=== PATIENT | male | born 1970 | race Caucasian/White ===

== ENCOUNTER 2020-08-11 13:57 | Inpatient (IN) | payer BC, OTHER ==
[~2020-08-11] VITALS: Ht 182.9 cm; Wt 99.5 kg
[2020-08-11 14:32] LABS: BASOPHILS % (AUTO) 1 % (0-1); EOSINOPHILS % (AUTO) 2 % (1-7); LYMPHOCYTES % (AUTO) 22 % (22-44); MEAN CORPUSCULAR HEMOGLOBIN 32.4 pg (27.5-34.5); MEAN CORPUSCULAR HGB CONC 34.8 g/dL (33.2-36.2); MONOCYTES % (AUTO) 8 % (2-9); NEUTROPHILS % (AUTO) 67 % (42-75); PLATELET COUNT 281 x10^3/uL (130-400); RED BLOOD COUNT 5.13 x10^6/uL (4.38-5.82); RED CELL DISTRIBUTION WIDTH 12.8 % (9.4-14.8)
[2020-08-11 14:42] LABS: ALANINE AMINOTRANSFERASE 34 U/L (12-78); ALBUMIN 3.8 g/dL (3.4-5.0); ANION GAP 6 mmol/L (5-15); CALCIUM 9.4 mg/dL (8.5-10.1); CHLORIDE 105 mmol/L (98-107); CREATININE 0.96 mg/dL (0.7-1.3)
[2020-08-11 14:44] LABS: ALKALINE PHOSPHATASE 136 U/L (45-117); BILIRUBIN,TOTAL 0.4 mg/dL (0.2-1.0); TOTAL PROTEIN 7.8 g/dL (6.4-8.2)
[2020-08-11 14:54] LABS: MD NO
--- NOTE | 2020-08-11 15:20 | NUR ---
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
--- NOTE | 2020-08-11 15:42 | NUR ---
PIT ORDERS PLACED IN TRIAGE. CONTINUE TO AWAIT XR, ALL OTHER RESULTS BACK. FAMILY AT BS.
--- NOTE | 2020-08-11 16:39 | NUR ---
ERP IN FOR RECHECK. ADD ON ORDERS FOR CTA. OUTSIDE PLANT SUPERVISOR IN TO START IV.
--- NOTE | 2020-08-11 17:00 | NUR ---
PT PLACED ON HEART MONITOR, VS RECHECKED/UPDATED IN COMPUTER.
[2020-08-11] MEDS ORDERED: BUTALB/APAP/CAFFEINE 50MG/325MG/40MG PO PRN ×2 (18:00)
[2020-08-11] MEDS ORDERED: LABETALOL 5MG/ML, 20ML IVPush PRN (18:00)
[2020-08-11] MEDS ORDERED: ONDANSETRON 2MG/ML, 2ML IVPush PRN (18:00)
[2020-08-11] MEDS ORDERED: OMNIPAQUE 350 MG/ML, 150 ML BOTTLE ONE (18:00)
[2020-08-11] MEDS ORDERED: ENALAPRILAT 1.25 MG/ML, 2ML IVPush PRN (18:00)
[2020-08-11] MEDS ORDERED: HEPARIN 5,000 UNITS/ML, 1ML IV ONE (18:00)
[2020-08-11] MEDS ORDERED: ONDANSETRON ODT 4 MG PO PRN (18:00)
[2020-08-11] MEDS ORDERED: BACLOFEN 10 MG TABLET PO PRN (18:00)
[2020-08-11] MEDS ORDERED: GUAIFENESIN/DM 200-20MG, 10ML UDC PO PRN (18:00)
--- NOTE | 2020-08-11 18:06 | NUR ---
ATTEMPT TO CALL REPORT, RN UNAVAILABLE, WILL CALL BACK.
--- NOTE | 2020-08-11 18:18 | NUR ---
REPORT TO CECELIA RN, PT READY FOR TRANSPORT TO [facility]. READS ON ONE CTA NOT RESULTED AT THIS TIME. PLAN DISCUSSED WITH ALCIDES AND CECELIA (RECEIVING RN) TO HOLD ON HEPARIN UNTIL CTA READS BACK AND VERIFICATION WITH [facility] TO PROCEED.
[2020-08-11] MEDS ORDERED: SODIUM CHLORIDE FLUSH 10ML SYR IVF PRN (18:30)
[2020-08-11] MEDS: MELATONIN 5 MG TABLET PO SCH (21:00)
[2020-08-11] MEDS: HEPARIN 25,000 UNITS/250ML PMX 250 ML IV PRN (21:41)
[2020-08-11] MEDS: OXYcodone IR 5MG TABLET PO PRN ×2 (21:44→22:06)
[2020-08-11] MEDS ORDERED: CETI-222 PO (22:11)
[2020-08-11] MEDS ORDERED: ATOR80TA PO (22:11)
[2020-08-11] MEDS: D5%-0.45% NACL 1,000 ML IV SCH (23:06)
[2020-08-11 23:12] VITALS: BP 144/89
[2020-08-11] MEDS: HYDROmorphone 2 MG/ML, 1ML IVPush PRN (23:19)
[2020-08-12] MEDS: HYDROmorphone 2 MG/ML, 1ML IVPush PRN ×5 (00:17→07:38)
[2020-08-12 01:29] VITALS: BP 121/76
[2020-08-12] MEDS: OXYcodone IR 5MG TABLET PO PRN (02:20)
[2020-08-12 04:30] LABS: BASOPHILS % (AUTO) 1 % (0-1); EOSINOPHILS % (AUTO) 2 % (1-7); LYMPHOCYTES % (AUTO) 32 % (22-44); MEAN CORPUSCULAR HEMOGLOBIN 32.7 pg (27.5-34.5); MEAN CORPUSCULAR HGB CONC 35.1 g/dL (33.2-36.2); MEAN PLATELET VOLUME 9.1 fL (7.4-10.4); MONOCYTES % (AUTO) 11 % (2-9); NEUTROPHILS % (AUTO) 55 % (42-75); PLATELET COUNT 243 x10^3/uL (130-400); RED BLOOD COUNT 4.53 x10^6/uL (4.38-5.82); RED CELL DISTRIBUTION WIDTH 12.7 % (9.4-14.8)
[2020-08-12 04:32] LABS: MD NO
[2020-08-12 04:37] LABS: ANION GAP 6 mmol/L (5-15); CALCIUM 8.8 mg/dL (8.5-10.1); CHLORIDE 107 mmol/L (98-107); CREATININE 0.81 mg/dL (0.7-1.3)
[2020-08-12] MEDS: HEPARIN 5,000 UNITS/ML, 1ML IV PRN (04:57)
[2020-08-12] MEDS: NICOTINE 21 MG/24 HR PATCH.TD24 TD SCH (07:31)
[2020-08-12] MEDS: SENNA/DOCUSATE TABLET PO SCH (07:31)
[2020-08-12 07:54] VITALS: BP 118/78
[2020-08-12] MEDS ORDERED: ATORVASTATIN 80 MG TABLET PO PRN (08:00)
[2020-08-12] MEDS: ASPIRIN 81 MG TABLET EC PO SCH (10:26)
[2020-08-12] MEDS ORDERED: CHLORHEXIDINE 15 ML UDC ONE (11:10)
[2020-08-12] MEDS ORDERED: CHLORHEXIDINE 15 ML UDC PO ONE (11:30)
[2020-08-12] MEDS: INSULIN LISPRO 100 UNITS/ML, PEN SQ-INSULIN SCH ×2 (11:34→16:00)
[2020-08-12 12:05] VITALS: BP 127/83
[2020-08-12] MEDS: D5%-0.45% NACL 1,000 ML IV SCH (12:54)
[2020-08-12] MEDS ORDERED: THROMBIN 20,000 UNIT VIAL TP ONE (13:22)
[2020-08-12] MEDS ORDERED: BUPIVACAINE/PF 0.5% ONE (13:22)
[2020-08-12] MEDS ORDERED: HEPARIN 1,000 UNITS/ML, 10ML ONE ×2 (13:22→16:53)
[2020-08-12] MEDS ORDERED: PROTAMINE SULFATE 10 MG/ML, 25ML ONE (13:23)
[2020-08-12] MEDS ORDERED: EPINEPHRINE 1 MG/ML, 1ML ONE (13:23)
[2020-08-12] MEDS ORDERED: VISIPAQUE 320MG/ML, 50ML BOTTLE ONE (14:08)
[2020-08-12] MEDS ORDERED: VISIPAQUE 270 MG/ML, 50ML BOTTLE ONE (14:08)
[2020-08-12] MEDS ORDERED: MIDAZOLAM 1 MG/ML, 2ML ONE (14:48)
[2020-08-12] MEDS ORDERED: FENTANYL PF 250 MCG/5ML ONE (14:48)
[2020-08-12] MEDS ORDERED: PHENYLEPHRINE 10 MG/ML ONE (15:08)
[2020-08-12] MEDS ORDERED: DEXAMETHASONE 4 MG/ML, 1ML ONE (15:08)
[2020-08-12] MEDS ORDERED: HEPARIN 1,000 UNITS/ML, 1ML IV ONE (15:48)
[2020-08-12] MEDS ORDERED: VISIPAQUE 270 MG/ML, 50ML BOTTLE IV ONE (16:00)
[2020-08-12] MEDS ORDERED: ALBUTEROL SULFATE 2.5 MG/3 ML NPPB PRN (17:00)
[2020-08-12] MEDS ORDERED: HYDROmorphone 1 MG/ML, 1ML INJ IVPush PRN (17:00)
[2020-08-12] MEDS ORDERED: PROMETHAZINE 25 MG/ML, 1ML IVPush PRN (17:00)
[2020-08-12] MEDS ORDERED: LABETALOL 5MG/ML, 20ML IV PRN (17:00)
[2020-08-12] MEDS ORDERED: hydrALAzine 20 MG/ML, 1ML IV PRN (17:00)
[2020-08-12] MEDS ORDERED: ACETAMINOPHEN 325 MG TABLET PO PRN (17:00)
[2020-08-12] MEDS ORDERED: MEPERIDINE/PF 25MG/0.5ML IVPush PRN (17:00)
[2020-08-12] MEDS ORDERED: LORazepam 2 MG/ML, 1ML IVPush PRN (17:00)
[2020-08-12] MEDS ORDERED: OXYcodone 5 MG/5 ML ORAL.SOL UDC PO PRN (17:00)
[2020-08-12] MEDS ORDERED: ONDANSETRON 2MG/ML, 2ML ONE (19:00)
[2020-08-12] MEDS ORDERED: PROPOFOL 10 MG/ML, 20ML ONE (19:00)
[2020-08-12] MEDS ORDERED: ROCURONIUM 10MG/ML,5ML ONE (19:00)
[2020-08-12] MEDS ORDERED: NEOSTIGMINE 1 MG/ML, 10ML ONE (19:00)
[2020-08-12] MEDS ORDERED: GLYCOPYRROLATE 0.2MG/1ML, 5ML ONE (19:00)
[2020-08-12] MEDS ORDERED: FENTANYL PF 100 MCG/2ML ONE ×2 (19:00→19:45)
[2020-08-12] MEDS ORDERED: CEFAZOLIN 1,000 MG ONE (19:00)
[2020-08-12] MEDS ORDERED: OXYcodone 5 MG/5 ML ORAL.SOL UDC ONE (19:45)
[2020-08-12] MEDS: FENTANYL PF 100 MCG/2ML IV PRN ×2 (19:50→20:01)
[2020-08-12] MEDS ORDERED: HYDROmorphone 1 MG/ML, 1ML INJ ONE (20:17)
[2020-08-12] MEDS: MELATONIN 5 MG TABLET PO SCH (21:00)
[2020-08-12 21:18] VITALS: BP 134/82
[2020-08-12] MEDS ORDERED: LIDOCAINE JELLY 2%, 30GM TP ONE (22:00)
[2020-08-13] MEDS: OXYcodone IR 5MG TABLET PO PRN ×5 (00:15→21:35)
[2020-08-13] MEDS: INSULIN LISPRO 100 UNITS/ML, PEN SQ-INSULIN SCH ×5 (00:19→21:29)
[2020-08-13 00:22] VITALS: BP 148/91
[2020-08-13 01:35] LABS: BASOPHILS % (AUTO) 1 % (0-1); EOSINOPHILS % (AUTO) 0 % (1-7); LYMPHOCYTES % (AUTO) 9 % (22-44); MEAN CORPUSCULAR HGB CONC 34.3 g/dL (33.2-36.2); MEAN PLATELET VOLUME 8.6 fL (7.4-10.4); MONOCYTES % (AUTO) 7 % (2-9); NEUTROPHILS % (AUTO) 83 % (42-75); PLATELET COUNT 262 x10^3/uL (130-400); RED BLOOD COUNT 4.49 x10^6/uL (4.38-5.82); RED CELL DISTRIBUTION WIDTH 12.7 % (9.4-14.8)
[2020-08-13 01:36] LABS: MD NO
[2020-08-13 01:45] LABS: ALBUMIN 3.2 g/dL (3.4-5.0); ANION GAP 7 mmol/L (5-15); CALCIUM 8.7 mg/dL (8.5-10.1); CHLORIDE 107 mmol/L (98-107)
[2020-08-13] MEDS: HYDROmorphone 2 MG/ML, 1ML IVPush PRN ×5 (01:56→23:13)
[2020-08-13] MEDS ORDERED: HEPARIN 5,000 UNITS/ML, 1ML IV ONE (03:00)
[2020-08-13] MEDS: HEPARIN 25,000 UNITS/250ML PMX 250 ML IV PRN (03:10)
[2020-08-13 05:00] VITALS: BP 123/81
[2020-08-13] MEDS: ASPIRIN 81 MG TABLET EC PO SCH (06:58)
[2020-08-13] MEDS: NICOTINE 21 MG/24 HR PATCH.TD24 TD SCH (07:58)
[2020-08-13] MEDS: SENNA/DOCUSATE TABLET PO SCH (07:58)
[2020-08-13 08:39] VITALS: BP 119/77
[2020-08-13] MEDS: D5%-0.45% NACL 1,000 ML IV SCH (09:37)
[2020-08-13] MEDS: HEPARIN 5,000 UNITS/ML, 1ML IV PRN ×2 (09:52→16:44)
[2020-08-13 12:51] VITALS: BP 112/69
[2020-08-13 18:48] VITALS: BP 123/73
[2020-08-13] MEDS: MELATONIN 5 MG TABLET PO SCH (21:00)
[2020-08-14] MEDS: HEPARIN 5,000 UNITS/ML, 1ML IV PRN ×4 (00:50→21:36)
[2020-08-14] MEDS: HEPARIN 25,000 UNITS/250ML PMX 250 ML IV PRN ×2 (00:52→17:51)
[2020-08-14 01:27] VITALS: BP 134/76
[2020-08-14] MEDS: OXYcodone IR 5MG TABLET PO PRN ×5 (02:00→20:13)
[2020-08-14] MEDS: HYDROmorphone 2 MG/ML, 1ML IVPush PRN ×7 (02:45→21:34)
[2020-08-14] MEDS: ASPIRIN 81 MG TABLET EC PO SCH (05:45)
[2020-08-14] MEDS: NICOTINE 21 MG/24 HR PATCH.TD24 TD SCH (07:38)
[2020-08-14] MEDS: SENNA/DOCUSATE TABLET PO SCH ×2 (07:40→21:40)
[2020-08-14] MEDS: INSULIN LISPRO 100 UNITS/ML, PEN SQ-INSULIN SCH ×4 (07:48→21:41)
[2020-08-14 07:55] VITALS: BP 130/80
[2020-08-14 12:57] VITALS: BP 130/80
[2020-08-14] MEDS ORDERED: HYDROmorphone 1 MG/ML, 1ML INJ IV ONE (13:30)
[2020-08-14] MEDS ORDERED: HYDROmorphone 1 MG/ML, 1ML INJ IM ONE (13:30)
[2020-08-14 19:15] VITALS: BP 134/81
[2020-08-14] MEDS ORDERED: DIPHENHYDRAMINE 25 MG CAPSULE PO PRN (20:00)
[2020-08-14] MEDS ORDERED: BISACODYL 10 MG SUPP PR PRN (21:00)
[2020-08-14] MEDS: MELATONIN 5 MG TABLET PO SCH (21:00)
[2020-08-14] MEDS: DIPHENHYDRAMINE/ZINC CRM 2%, 30GM TP PRN (21:03)
[2020-08-15 00:24] VITALS: BP 129/86
[2020-08-15] MEDS: OXYcodone IR 5MG TABLET PO PRN ×6 (00:29→22:34)
[2020-08-15] MEDS: HYDROmorphone 2 MG/ML, 1ML IVPush PRN ×7 (01:34→23:54)
[2020-08-15] MEDS: HEPARIN 5,000 UNITS/ML, 1ML IV PRN ×3 (04:27→18:00)
[2020-08-15] MEDS: ASPIRIN 81 MG TABLET EC PO SCH (04:29)
[2020-08-15 05:33] LABS: BASOPHILS % (AUTO) 1 % (0-1); EOSINOPHILS % (AUTO) 3 % (1-7); LYMPHOCYTES % (AUTO) 26 % (22-44); MEAN CORPUSCULAR HEMOGLOBIN 32.4 pg (27.5-34.5); MEAN CORPUSCULAR HGB CONC 34.6 g/dL (33.2-36.2); MONOCYTES % (AUTO) 10 % (2-9); NEUTROPHILS % (AUTO) 61 % (42-75); PLATELET COUNT 237 x10^3/uL (130-400); RED BLOOD COUNT 4.14 x10^6/uL (4.38-5.82); RED CELL DISTRIBUTION WIDTH 12.4 % (9.4-14.8)
[2020-08-15 05:35] LABS: MD NO
[2020-08-15 07:50] VITALS: BP 133/83
[2020-08-15] MEDS: INSULIN LISPRO 100 UNITS/ML, PEN SQ-INSULIN SCH ×4 (08:12→20:24)
[2020-08-15] MEDS: DOCUSATE 100 MG CAPSULE PO SCH (08:14)
[2020-08-15] MEDS: SENNA/DOCUSATE TABLET PO SCH ×2 (08:14→20:24)
[2020-08-15] MEDS: HEPARIN 25,000 UNITS/250ML PMX 250 ML IV PRN ×2 (08:29→20:02)
[2020-08-15] MEDS: DIPHENHYDRAMINE/ZINC CRM 2%, 30GM TP PRN ×3 (08:48→20:24)
[2020-08-15] MEDS: NICOTINE 21 MG/24 HR PATCH.TD24 TD SCH (09:00)
[2020-08-15] MEDS: ACETAMINOPHEN 325 MG TABLET PO SCH ×2 (11:34→17:19)
[2020-08-15 14:00] VITALS: BP 113/78
[2020-08-15 19:41] VITALS: BP 100/42
[2020-08-15] MEDS: MELATONIN 5 MG TABLET PO SCH (20:25)
[2020-08-16] MEDS: HEPARIN 5,000 UNITS/ML, 1ML IV PRN ×2 (00:22→07:29)
[2020-08-16 01:22] VITALS: BP 117/68
[2020-08-16] MEDS: OXYcodone IR 5MG TABLET PO PRN ×5 (02:55→19:59)
[2020-08-16] MEDS: HYDROmorphone 2 MG/ML, 1ML IVPush PRN (05:41)
[2020-08-16] MEDS: HEPARIN 25,000 UNITS/250ML PMX 250 ML IV PRN ×2 (05:42→14:59)
[2020-08-16] MEDS: ASPIRIN 81 MG TABLET EC PO SCH (06:05)
[2020-08-16 06:20] VITALS: BP 124/85
[2020-08-16] MEDS: INSULIN LISPRO 100 UNITS/ML, PEN SQ-INSULIN SCH ×4 (07:30→20:55)
[2020-08-16] MEDS: DOCUSATE 100 MG CAPSULE PO SCH (08:15)
[2020-08-16] MEDS: ACETAMINOPHEN 325 MG TABLET PO SCH ×3 (08:16→16:40)
[2020-08-16] MEDS: SENNA/DOCUSATE TABLET PO SCH (08:17)
[2020-08-16] MEDS ORDERED: HYDROmorphone 2 MG/ML, 1ML IVPush PRN ×2 (09:30→16:00)
[2020-08-16] MEDS ORDERED: BISACODYL 10 MG SUPP PR PRN (09:30)
[2020-08-16] MEDS: MAGNESIUM CITRATE 300ML ORAL SOL PO PRN ×2 (11:14→14:17)
[2020-08-16] MEDS: GABAPENTIN 300 MG CAPSULE PO SCH ×3 (11:15→20:54)
[2020-08-16] MEDS: MAGNESIUM HYDROXIDE 8%, 30ML UDC PO SCH ×2 (11:20→20:46)
[2020-08-16] MEDS: NICOTINE 21 MG/24 HR PATCH.TD24 TD SCH (11:20)
[2020-08-16] MEDS: DIPHENHYDRAMINE/ZINC CRM 2%, 30GM TP PRN ×2 (11:33→19:58)
[2020-08-16 14:08] VITALS: BP 131/81
[2020-08-16 18:51] VITALS: BP 125/80
[2020-08-16] MEDS: MELATONIN 5 MG TABLET PO SCH (20:46)
[2020-08-16] MEDS: APIXABAN 5 MG TABLET PO SCH (20:54)
[2020-08-17] MEDS: OXYcodone IR 5MG TABLET PO PRN ×2 (00:11→04:23)
[2020-08-17 00:48] VITALS: BP 138/80
[2020-08-17] MEDS: ASPIRIN 81 MG TABLET EC PO SCH (05:50)
[2020-08-17 07:10] VITALS: BP 120/83
[2020-08-17] MEDS: ACETAMINOPHEN 325 MG TABLET PO SCH (07:46)
[2020-08-17] MEDS: INSULIN LISPRO 100 UNITS/ML, PEN SQ-INSULIN SCH ×2 (07:46→11:00)
[2020-08-17] MEDS ORDERED: MORP-30 PO (08:32)
[2020-08-17] MEDS ORDERED: OXYC5TAB98 PO (08:32)
[2020-08-17] MEDS ORDERED: GABA300C PO (08:32)
[2020-08-17] MEDS ORDERED: B12/1TAB3 PO (08:32)
[2020-08-17] MEDS ORDERED: UBID1CAP43 PO (08:32)
[2020-08-17] MEDS ORDERED: APIX5TAB PO (08:32)
[2020-08-17] MEDS: APIXABAN 5 MG TABLET PO SCH (08:45)
[2020-08-17] MEDS: GABAPENTIN 300 MG CAPSULE PO SCH (08:45)
[2020-08-17] MEDS: DOCUSATE 100 MG CAPSULE PO SCH (08:46)
[2020-08-17] MEDS: MAGNESIUM HYDROXIDE 8%, 30ML UDC PO SCH (08:46)
[2020-08-17] MEDS: SENNA/DOCUSATE TABLET PO SCH (08:46)
[2020-08-17] MEDS: NICOTINE 21 MG/24 HR PATCH.TD24 TD SCH (08:46)
[2020-08-17 10:51] VITALS: BP 120/77
== END 2020-08-17 11:45 | disposition home or self-care (01) | DRG 253 ==
LOC: ED 16:31 → EDIP 17:28 → 3N 19:00 → 4NE 08-12 20:54 → DCLOUNGE 08-17 11:22
PROVIDERS: ADMIT Family Medicine; ATTEND Family Medicine
PROC: 06BQ0ZZ Excision of Left Saphenous Vein, Open Approach (ICD-10-PCS; 2020-08-12)
PROC: B44LZZZ Ultrasonography of Femoral Artery (ICD-10-PCS; 2020-08-12)
PROC: B41G1ZZ Fluoroscopy of Left Lower Extremity Arteries using Low Osmolar Contrast (ICD-10-PCS; 2020-08-12)
PROC: 041L09L Bypass Left Femoral Artery to Popliteal Artery with Autologous Venous Tissue, Open Approach (ICD-10-PCS; principal; 2020-08-12 12:30)
DX: I77.1 Stricture of artery (principal); E87.1 Hypo-osmolality and hyponatremia; D72.829 Elevated white blood cell count, unspecified; E11.65 Type 2 diabetes mellitus with hyperglycemia; F17.210 Nicotine dependence, cigarettes, uncomplicated; E11.40 Type 2 diabetes mellitus with diabetic neuropathy, unspecified; K59.00 Constipation, unspecified; R00.0 Tachycardia, unspecified; Z20.822 Contact with and (suspected) exposure to COVID-19; Z85.828 Personal history of other malignant neoplasm of skin
CPT/HCPCS: 36415; 71275; 75635; 75710; 80048; 80053; 82040; 82962; 83036; 83735; 85025; 85520; 87635; 93005; 93306; 96374; 99285; G0378; J0171; J0690; J1100; J1170; J1644; J2250; J2405; J2704; J2710; J2720; J3010; Q9966; Q9967; C1757; J1815; J2370